=== PATIENT | female | born 1965 | race Hispanic/Latino ===

== ENCOUNTER 2018-05-13 21:49 | Emergency (ER) | payer OTHER ==
[2018-05-13] MEDS ORDERED: IPRATROPIUM/ALBUTEROL SULFATE 3 ML SOLUTION IH ONE (22:04)
[2018-05-13] MEDS ORDERED: METHYLPREDNISOLONE SOD SUCC 125MG/2ML VIAL ONE (22:26)
[2018-05-13 22:34] LABS: EOSINOPHILS % (AUTO) 3.2 % (0.0-8.0); HEMATOCRIT 36.1 % (36-48); LYMPHOCYTES % (AUTO) 35.6 % (21.0-51.0); MEAN CORPUSCULAR HEMOGLOBIN 30.5 pg (27.0-33.0); MEAN CORPUSCULAR HGB CONC 34.6 g/dL (32.0-36.0); MONOCYTES % (AUTO) 5.7 % (3.0-13.0); NEUTROPHILS % (AUTO) 54.5 % (40.0-77.0); PLATELET COUNT (AUTO) 197 K/uL (130-400); RED CELL DISTRIBUTION WIDTH 13.5 % (11.0-15.5); WHITE BLOOD COUNT (AUTO) 8.5 K/uL (4.8-10.8)
[2018-05-13 22:41] LABS: INR 0.97 (0.85-1.15); PROTHROMBIN TIME 10.2 SEC (9.6-11.6)
[2018-05-13 22:42] LABS: CREATININE 1.1 mg/dL (0.5-1.5); POTASSIUM 3.8 mmol/L (3.5-5.1)
[2018-05-13 22:57] LABS: ALBUMIN 3.7 g/dL (3.5-5.0); BILIRUBIN,TOTAL 0.2 mg/dL (0.2-1.0); CREATINE KINASE MB 0.5 ng/mL (0.5-3.6); TOTAL PROTEIN, SERUM 7.3 g/dL (6.0-8.3)
[2018-05-13 23:17] LABS: APPEARANCE,URINE Clear (CLEAR); BILIRUBIN,URINE Negative (NEGATIVE); COLOR,URINE Yellow (YELLOW); GLUCOSE, URINE (UA) Negative (NEGATIVE); KETONES,URINE Negative (NEGATIVE); LEUKOCYTE ESTERASE ,URINE Moderate (NEGATIVE); NITRATE,URINE Negative (NEGATIVE); OCCULT BLOOD,URINE Moderate (NEGATIVE); PROTEIN,URINE Negative (NEGATIVE)
[2018-05-13 23:28] LABS: BACTERIA,URINE None Seen /HPF (None Seen); MUCUS,URINE Rare LPF (None Seen); SQUAMOUS EPITHELIAL CELL,UR Rare /HPF (0-2); WBC,URINE 0-1 /HPF (0-1)
== END 2018-05-14 | disposition home or self-care (01) ==
LOC: EDH 21:49
DX: J45.31 Mild persistent asthma with (acute) exacerbation (principal); R03.0 Elevated blood-pressure reading, without diagnosis of hypertension
CPT/HCPCS: 36415; 71045; 80053; 81001; 82550; 82553; 84484; 85025; 85610; 85730; 93005; 94640; 96374; 99285; J2930

== ENCOUNTER 2018-11-19 08:14 | Emergency (ER) | payer SELFPAY ==
[2018-11-19] MEDS ORDERED: METHYLPREDNISOLONE SOD SUCC 125MG/2ML VIAL ONE (08:40)
[2018-11-19] MEDS ORDERED: IPRATROPIUM/ALBUTEROL SULFATE 3 ML SOLUTION IH ONE (08:46)
[2018-11-19 08:58] LABS: BASOPHILS % (AUTO) 0.4 % (0.0-5.0); EOSINOPHILS % (AUTO) 0.3 % (0.0-8.0); HEMATOCRIT 39.4 % (36-48); LYMPHOCYTES % (AUTO) 6.1 % (21.0-51.0); MEAN CORPUSCULAR HEMOGLOBIN 29.7 pg (27.0-33.0); MEAN CORPUSCULAR HGB CONC 33.4 g/dL (32.0-36.0); MEAN CORPUSCULAR VOLUME 88.8 fL (79-99); MONOCYTES % (AUTO) 3.8 % (3.0-13.0); NEUTROPHILS % (AUTO) 89.4 % (40.0-77.0); PLATELET COUNT (AUTO) 192 K/uL (130-400); RED BLOOD CELL COUNT(AUTO) 4.44 MIL/uL (4.00-5.50); RED CELL DISTRIBUTION WIDTH 12.9 % (11.0-15.5); WHITE BLOOD COUNT (AUTO) 14.2 K/uL (4.8-10.8)
[2018-11-19 09:08] LABS: CREATININE 0.8 mg/dL (0.5-1.5); POTASSIUM 3.8 mmol/L (3.5-5.1)
[2018-11-19 09:11] LABS: INR 0.94 (0.85-1.15); PARTIAL THROMBOPLASTIN TIME 26.9 SEC (26.3-35.5); PROTHROMBIN TIME 9.9 SEC (9.6-11.6)
[2018-11-19 09:12] LABS: ALBUMIN 4.1 g/dL (3.5-5.0); BILIRUBIN,TOTAL 0.5 mg/dL (0.2-1.0); TOTAL PROTEIN, SERUM 8.1 g/dL (6.0-8.3)
[2018-11-19 09:42] LABS: APPEARANCE,URINE Clear (CLEAR); BILIRUBIN,URINE Negative (NEGATIVE); COLOR,URINE Yellow (YELLOW); GLUCOSE, URINE (UA) Negative (NEGATIVE); KETONES,URINE Negative (NEGATIVE); LEUKOCYTE ESTERASE ,URINE Negative (NEGATIVE); NITRATE,URINE Negative (NEGATIVE); OCCULT BLOOD,URINE Large (NEGATIVE); PROTEIN,URINE Negative (NEGATIVE); UROBILINOGEN,URINE 0.2 mg/dL (0.2-1.0)
[2018-11-19 09:51] LABS: BACTERIA,URINE Rare /HPF (None Seen); MUCUS,URINE Few LPF (None Seen); RBC,URINE 0-1 /HPF (0-1); SQUAMOUS EPITHELIAL CELL,UR Rare /HPF (0-2); WBC,URINE 0-1 /HPF (0-1)
[2018-11-19] MEDS ORDERED: LEVOFLOXACIN 500 MG TABLET ONE (10:04)
== END 2018-11-19 11:12 | disposition home or self-care (01) ==
LOC: EDH 08:14
DX: J45.901 Unspecified asthma with (acute) exacerbation (principal); D72.829 Elevated white blood cell count, unspecified; R31.9 Hematuria, unspecified
CPT/HCPCS: 36415; 71045; 80053; 81001; 82550; 84484; 85025; 85610; 85730; 87088; 93005; 94640; 96374; 99284; J2930

== ENCOUNTER 2020-01-04 18:05 | Emergency (ER) | payer OTHER ==
[2020-01-04 18:53] LABS: BASOPHILS % (AUTO) 0.4 % (0.0-5.0); EOSINOPHILS % (AUTO) 0.2 % (0.0-8.0); HEMATOCRIT 37.3 % (36-48); MEAN CORPUSCULAR HEMOGLOBIN 29.4 pg (27.0-33.0); MEAN CORPUSCULAR VOLUME 86.3 fL (79-99); MONOCYTES % (AUTO) 8.1 % (3.0-13.0); NEUTROPHILS % (AUTO) 81.9 % (40.0-77.0); PLATELET COUNT (AUTO) 167 K/uL (130-400); RED BLOOD CELL COUNT(AUTO) 4.32 MIL/uL (4.00-5.50); RED CELL DISTRIBUTION WIDTH 12.6 % (11.0-15.5); WHITE BLOOD COUNT (AUTO) 13.4 K/uL (4.8-10.8)
[2020-01-04] MEDS ORDERED: SODIUM CHLORIDE 0.9% 1000ML 1,000 ML IV ONE (18:54)
[2020-01-04 19:05] LABS: CREATININE 0.7 mg/dL (0.5-1.5); POTASSIUM 3.5 mmol/L (3.5-5.1)
[2020-01-04 19:07] LABS: INR 1.14 (0.85-1.15); PARTIAL THROMBOPLASTIN TIME 28.8 SEC (26.3-35.5); PROTHROMBIN TIME 11.9 SEC (9.6-11.6)
[2020-01-04 19:09] LABS: ALBUMIN 3.9 g/dL (3.5-5.0); BILIRUBIN,TOTAL 1.4 mg/dL (0.2-1.0); TOTAL PROTEIN, SERUM 7.9 g/dL (6.0-8.3)
[2020-01-04 19:22] LABS: APPEARANCE,URINE Cloudy (CLEAR); BILIRUBIN,URINE Small (NEGATIVE); COLOR,URINE Dark Yellow (YELLOW); GLUCOSE, URINE (UA) TRACE mg/dL (NEGATIVE); KETONES,URINE >=80 mg/dL (NEGATIVE); LEUKOCYTE ESTERASE ,URINE Moderate (NEGATIVE); NITRATE,URINE Negative (NEGATIVE); OCCULT BLOOD,URINE Large (NEGATIVE); PROTEIN,URINE POS 2+ mg/dL (NEGATIVE)
[2020-01-04 19:45] LABS: BACTERIA,URINE Moderate /HPF (None Seen); MUCUS,URINE Many LPF (None Seen); RBC,URINE 26-50 /HPF (0-1); SQUAMOUS EPITHELIAL CELL,UR Few /HPF (0-2)
[2020-01-04] MEDS ORDERED: ONDANSETRON HCL 4 MG/2 ML VIAL ONE (20:02)
[2020-01-04] MEDS ORDERED: MORPHINE SULFATE 4 MG/1ML SYG ONE (20:02)
== END 2020-01-04 22:04 | disposition short-term general hospital (02) ==
LOC: EDH 18:05
DX: K81.0 Acute cholecystitis (principal); J45.909 Unspecified asthma, uncomplicated
CPT/HCPCS: 36415; 71045; 76705; 80053; 81001; 82150; 82550; 83690; 84484; 85025; 85610; 85730; 93005; 96374; 96375; 99285; J2270; J2405; J7030

== ENCOUNTER 2021-05-04 08:55 | Emergency (ER) | payer SELFPAY ==
[~2021-05-04] VITALS: Ht 152.4 cm; Wt 71.7 kg
[2021-05-04 09:08] VITALS: BP 132/86
[2021-05-04] MEDS ORDERED: ASPIRIN 325MG EC TAB 325 MG TABLET.DR PO SCH (09:45)
[2021-05-04 09:46] LABS: BASOPHILS % (AUTO) 0.7 % (0.0-5.0); EOSINOPHILS % (AUTO) 6.2 % (0.0-8.0); HEMATOCRIT 36.7 % (36-48); LYMPHOCYTES % (AUTO) 21.6 % (21.0-51.0); MEAN CORPUSCULAR HEMOGLOBIN 29.3 pg (27.0-33.0); MEAN CORPUSCULAR HGB CONC 33.8 g/dL (32.0-36.0); MEAN CORPUSCULAR VOLUME 86.8 fL (79-99); MONOCYTES % (AUTO) 7.3 % (3.0-13.0); NEUTROPHILS % (AUTO) 63.9 % (40.0-77.0); PLATELET COUNT (AUTO) 174 K/uL (130-400); RED BLOOD CELL COUNT(AUTO) 4.23 MIL/uL (4.00-5.50); RED CELL DISTRIBUTION WIDTH 12.8 % (11.0-15.5)
[2021-05-04 09:54] LABS: CARBON DIOXIDE 30 mmol/L (21-32); CHLORIDE 104 mmol/L (101-111); CREATININE 0.7 mg/dL (0.5-1.5); GLOMERULAR FILTR. RATE CALC 92 mL/min (>60); GLUCOSE,RANDOM 103 mg/dL (70-105); POTASSIUM 3.5 mmol/L (3.5-5.1); SODIUM SERUM 142 mmol/L (136-145); UREA NITROGEN, BLOOD 12 mg/dL (7-18)
[2021-05-04 09:58] LABS: PROTHROMBIN TIME 10.9 SEC (9.6-11.6)
[2021-05-04 09:59] LABS: PARTIAL THROMBOPLASTIN TIME 25.9 SEC (26.3-35.5)
[2021-05-04 10:05] LABS: ALANINE AMINOTRANSFERASE 22 U/L (12-78); ALBUMIN 3.7 g/dL (3.5-5.0); ASPARTATE AMINOTRANSFERASE 19 U/L (10-37); BILIRUBIN,TOTAL 0.6 mg/dL (0.2-1.0); CREATINE KINASE, TOTAL 89 U/L (21-232); MYOGLOBIN 36 ng/mL (10-92); TOTAL PROTEIN, SERUM 7.2 g/dL (6.0-8.3); TROPONIN I < 0.04 ng/mL (0.00-0.06)
[2021-05-04 10:13] LABS: B-TYPE NATRIURETIC PEPTIDE 14 pg/mL (0-100)
[2021-05-04] MEDS ORDERED: AEC81 PO (12:05)
[2021-05-04] MEDS ORDERED: AZIT500T2 PO (12:05)
[2021-05-04] MEDS ORDERED: FLUT16H NASAL (12:05)
[2021-05-04 12:22] VITALS: BP 142/6
== END 2021-05-04 12:22 | disposition home or self-care (01) ==
LOC: EDH 08:55
DX: R07.89 Other chest pain (principal); J32.9 Chronic sinusitis, unspecified; J45.909 Unspecified asthma, uncomplicated; Z20.822 Contact with and (suspected) exposure to COVID-19; Z79.82 Long term (current) use of aspirin
CPT/HCPCS: 36415; 71045; 80053; 82550; 83874; 83880; 84484; 85025; 85610; 85730; 87635; 87804 ×2; 93005; 99285; C9803

== ENCOUNTER 2022-03-29 09:31 | Emergency (ER) | payer OTHER ==
[~2022-03-29] VITALS: Ht 154.9 cm; Wt 70.8 kg
[~2022-03-29 09:31] MED LIST: AEC81 PO; AMOX-427 PO; AZIT500T2 PO; FLUT16H NASAL; IBUP-1493 PO
[2022-03-29 09:36] VITALS: BP 152/77
== END 2022-03-29 10:04 | disposition home or self-care (01) ==
LOC: EDH 09:31
DX: S01.01XD Laceration without foreign body of scalp, subsequent encounter (principal); J45.909 Unspecified asthma, uncomplicated; Z79.82 Long term (current) use of aspirin; Z79.899 Other long term (current) drug therapy; Z90.49 Acquired absence of other specified parts of digestive tract; X58.XXXD Exposure to other specified factors, subsequent encounter